=== PATIENT | female | born 1990 | race Caucasian/White ===

== ENCOUNTER 2017-07-14 20:22 | Emergency (ER) | payer OTHER ==
[~2017-07-14] VITALS: Ht 172.7 cm; Wt 104.3 kg
[~2017-07-14 20:22] MED LIST: ACET325; ACETAMINOPHEN; ALBU90OI INH; ALBU90OI61 INH; AMOX500 PO; ARIP15; ARIP15 PO; ARIP20 PO; ASPI81CH PO; ATOM25; AZIT250 PO; Amoxicillin500 MG PO; Ativan1 MG SL; BACITO TP; BECL80OI INH; BENZ100A PO; BIRTH CONTROL; BIRTH CONTROL PILLS; BUPR150ER; BUPR150ER PO; BUPR150T2; BUPR150T2 PO; BUSP5 PO; CEPH500 PO; CIPR500 PO; CLIN300 PO; CLON.5 PO; CODACE30; CODACE30 PO; CODGUAEL PO; COGENTIN; CYCL10 PO; Cipro500 MG PO; Cleocin HCl300 MG PO; DIAZ2 PO; DIPH50; DIPH50 PO; DOXY100 PO; Desyrel50 MG PO; ERGO400 PO; ESCI20; Estradiol0.5 MG PO; FAMO20 PO; FISH1000 PO; FLUC150A PO; FLUO10 PO; FOLI1; Flonase 0.05% N16 GM; GABA100 PO; GUAIFENESIN-PS1 EACH PO; HYDACE5; HYDACE5 PO; HYDACE5325 PO; HYDHCL25 PO; HYDR-86 PO; HYOS.125L SL; IBUP600 PO; IBUP800 PO; IBUPROFEN; KETO10 PO; LAMO100 PO; LAMO25 PO; LEVSOD150 PO; LEVSOD75 PO; LORA.5; LORA.5 PO; LORA2 PO; Lasix40 MG PO; MEDR150I; MELO7.5 PO; METF500 PO; METR500 PO; MONT10T; MONT10T PO; MULTI VIT; MULVITMINE; NAPR250 PO; NAPR500 PO; NITR100CA PO; NUVA RING; NYSTRI30T TOP; Naprosyn500 MG PO; OLAN5 PO; OMEP10ER; OMEP40CA12 PO; ONDA4ODT MM; OXECTA7.5 MG PO; OXYACE5T PO; OXYACE7.5T PO; OXYC5 PO; Omeprazole20 M1; PARO10 PO; PENVK500 PO; PHENA200 PO; POTCHL10ER PO; PRAZ1 PO; PRED10 PO; PRENZ PO; PROM25 PO; Percocet 5-3251 EACH PO; Peridex480 ML SS; Polytrim Eye Dr10 ML RIGHTEYE; Prednisone50 MG PO; Pseudoephedrine30 MG PO; Pyridium200 MG PO; QUET25; RANI150; RANI150 PO; RISP1; RXHYDACE PO; RXPROM25 PO; RXTOBROPSO OU; SULTRIDS PO; Symbyax 3-25 M1 EACH PO; TOPI100 PO; TRAACE PO; TRAM50 PO; Zofran Odt4 MG SL; [UNRECOGNIZED DRUG - OTHER] PO
[2017-07-14 23:48] LABS: BASOPHILS ABSOLUTE AUTO 0.04 K/mm3 (0.00-0.23); BASOPHILS PERCENT AUTO 0 % (0-2); EOSINOPHILS ABSOLUTE AUTO 0.16 K/mm3 (0.00-0.68); EOSINOPHILS PERCENT AUTO 2 % (0-6); Hematocrit 39.5 % (33.0-51.0); IMMATURE GRAN ABSOLUTE AUTO 0.04 K/mm3 (0.00-0.10); IMMATURE GRAN PERCENT AUTO 0 % (0-1); LYMPHOCYTES ABSOLUTE AUTO 2.72 K/mm3 (0.84-5.20); LYMPHOCYTES PERCENT AUTO 30 % (21-46); MONOCYTES ABSOLUTE AUTO 0.41 K/mm3 (0.16-1.47); MONOCYTES PERCENT AUTO 5 % (4-13); Mean Corpuscular HGB 28.1 pg (26.0-34.0); Mean Corpuscular HGB Conc 32.9 g/dL (31.5-36.5); Mean Corpuscular Volume 85 fL (80-100); NEUTROPHILS ABSOLUTE AUTO 5.79 K/mm3 (1.96-9.15); NEUTROPHILS PERCENT AUTO 63 % (41-73); Platelet Count 297 K/mm3 (150-400); RDW Coefficient Variation 11.8 % (11.7-14.2); RDW Standard Deviation 36.7 fL (35.1-46.3); Red Blood Cell Count 4.63 M/mm3 (3.80-5.20); White Blood Cell Count 9.16 K/mm3 (4.00-11.30)
[2017-07-15 00:06] LABS: Alanine Aminotransfer (ALT/SGP 22 U/L (12-78); Albumin, Blood 3.9 g/dL (3.4-5.0); Albumin/Globulin Ratio 0.9 (0.8-1.8); Alk Phos 100 U/L (50-136); Anion Gap 8 mmol/L (6-16); Aspartate Aminotrans (AST/SGOT 16 U/L (12-37); Bilirubin, Total 0.2 mg/dL (0.1-1.0); Blood Urea Nitrogen 12 mg/dL (8-24); Bun/Creatinine Ratio 16.3 (12.0-20.0); CO2, Blood 28 mmol/L (21-32); Calcium, Blood 9.6 mg/dL (8.5-10.1); Chloride, Blood 104 mmol/L (98-108); Creatinine, Blood 0.74 mg/dL (0.40-1.00); Globulin, Blood 4.2 g/dL (2.2-4.0); Glomerular Filtration Rate >60 (60-); Glucose, Blood 93 mg/dL (70-99); Potassium, Blood 3.8 mmol/L (3.5-5.5); Sodium, Blood 140 mmol/L (136-145); Total Protein, Blood 8.1 g/dL (6.4-8.2)
== END 2017-07-15 03:11 | disposition left against medical advice (07) ==
LOC: ER 20:22
PROVIDERS: Emergency Medicine
DX: R10.13 Epigastric pain (principal); R11.2 Nausea with vomiting, unspecified; J45.909 Unspecified asthma, uncomplicated; E03.9 Hypothyroidism, unspecified; F31.9 Bipolar disorder, unspecified; F41.9 Anxiety disorder, unspecified; F17.210 Nicotine dependence, cigarettes, uncomplicated; F17.290 Nicotine dependence, other tobacco product, uncomplicated; Z91.040 Latex allergy status; Z88.8 Allergy status to other drugs, medicaments and biological substances; Z91.018 Allergy to other foods; Z88.5 Allergy status to narcotic agent; Z79.899 Other long term (current) drug therapy
CPT/HCPCS: 36415; 80053; 83690; 85025; 96360; 99283; J2405; J7030

== ENCOUNTER 2018-07-24 06:08 | Day surgery (SDC) | payer OTHER ==
[~2018-07-24] VITALS: Ht 172.7 cm; Wt 118.1 kg
[~2018-07-24 06:08] MED LIST changes: +ACET325 PO; +DIAZ5 PO; +ESTR2 PO; +Inderal 20 mg T20 MG PO; +Lamictal25 MG PO; +Lialda1.2 GM PO; +MULTI VITAMIN1 EACH PO; +OMEPRAZOLE MAGN20 MG PO; +PROZAC20 MG PO; +QVAR REDIHALE10.6 G1 INH; +REXULTI1 MG PO; +Robaxin500 MG PO; +Synthroid175 MCG PO
[2018-07-24] MEDS ORDERED: DIAZ2 PO (06:53)
[2018-07-24] MEDS ORDERED: OLAN10 PO (06:55)
--- NOTE | 2018-07-24 07:03 | NUR ---
07/24/18 0703 Maribel Del Castillo V PT RESTING IN BED, SIDE RAILS IN PLACE, CALL LIGHT WITHIN REACH, VSS. PT TEACHING COMPLETED. PT REPORTS PAIN IN L KNEE BUT NO FUTHER DISCOMFORT OR QUESTIONS AT THIS TIME.
== END 2018-07-24 09:45 | disposition home or self-care (01) ==
LOC: ORSCSDS 06:08
PROVIDERS: Orthopaedic Surgery
PROC: 0SBD4ZZ Excision of Left Knee Joint, Percutaneous Endoscopic Approach (ICD-10-PCS; principal; 2018-07-24 07:30)
PROC: 0MNP4ZZ Release Left Knee Bursa and Ligament, Percutaneous Endoscopic Approach (ICD-10-PCS; principal; 2018-07-24 07:30)
DX: M22.42 Chondromalacia patellae, left knee (principal); S83.002A Unspecified subluxation of left patella, initial encounter; J45.909 Unspecified asthma, uncomplicated; F17.210 Nicotine dependence, cigarettes, uncomplicated; E03.9 Hypothyroidism, unspecified; M79.7 Fibromyalgia; K21.9 Gastro-esophageal reflux disease without esophagitis; E66.01 Morbid (severe) obesity due to excess calories; Z68.39 Body mass index [BMI] 39.0-39.9, adult; Z79.899 Other long term (current) drug therapy
CPT/HCPCS: J0171; J0690; J1100; J1885; J2250; J2405; J2704; J3010; J7120

== ENCOUNTER 2018-10-22 08:19 | Day surgery (SDC) | payer OTHER ==
[~2018-10-22] VITALS: Ht 172.7 cm; Wt 125.8 kg
[~2018-10-22 08:19] MED LIST changes: +OLAN10 PO
[2018-10-22] MEDS ORDERED: TOPI100 (08:50)
== END 2018-10-22 10:20 | disposition home or self-care (01) ==
LOC: ORSCSDS 08:19
PROVIDERS: Internal Medicine Gastroenterology
PROC: 0DB98ZX Excision of Duodenum, Via Natural or Artificial Opening Endoscopic, Diagnostic (ICD-10-PCS; principal; 2018-10-22 10:00)
PROC: 0DB68ZX Excision of Stomach, Via Natural or Artificial Opening Endoscopic, Diagnostic (ICD-10-PCS; principal; 2018-10-22 10:00)
DX: R10.9 Unspecified abdominal pain (principal); Z87.19 Personal history of other diseases of the digestive system; K29.80 Duodenitis without bleeding; R19.7 Diarrhea, unspecified; K21.9 Gastro-esophageal reflux disease without esophagitis; J45.909 Unspecified asthma, uncomplicated; F41.9 Anxiety disorder, unspecified; E66.9 Obesity, unspecified; Z68.39 Body mass index [BMI] 39.0-39.9, adult; K27.9 Peptic ulcer, site unspecified, unspecified as acute or chronic, without hemorrhage or perforation; Z87.891 Personal history of nicotine dependence; Z79.899 Other long term (current) drug therapy
CPT/HCPCS: 88305; 88342; J2704; J7120

== ENCOUNTER 2020-04-08 18:13 | Emergency (ER) | payer OTHER ==
[~2020-04-08] VITALS: Ht 170.2 cm; Wt 117.9 kg
[~2020-04-08 18:13] MED LIST changes: +TOPI100
[2020-04-08] MEDS ORDERED: Voltaren100 GM TOP (19:50)
[2020-04-22] MEDS ORDERED: Prevacid Soluta30 MG (09:18)
[2020-04-22] MEDS ORDERED: LATUDA80 M1 (09:18)
== END 2020-04-08 20:03 | disposition home or self-care (01) ==
LOC: ER 18:13
DX: S13.4XXA Sprain of ligaments of cervical spine, initial encounter (principal); S20.211A Contusion of right front wall of thorax, initial encounter; S83.91XA Sprain of unspecified site of right knee, initial encounter; E03.9 Hypothyroidism, unspecified; Z91.040 Latex allergy status; Z88.5 Allergy status to narcotic agent; Z79.899 Other long term (current) drug therapy; Z79.3 Long term (current) use of hormonal contraceptives; Z87.891 Personal history of nicotine dependence; W01.0XXA Fall on same level from slipping, tripping and stumbling without subsequent striking against object, initial encounter; Y92.512 Supermarket, store or market as the place of occurrence of the external cause
CPT/HCPCS: 96372; 99283-25; J1885

== ENCOUNTER 2020-04-29 11:55 | Day surgery (SDC) | payer OTHER ==
[~2020-04-29] VITALS: Ht 170.2 cm; Wt 115.9 kg
[~2020-04-29 11:55] MED LIST changes: +LATUDA80 M1; +Prevacid Soluta30 MG; +Voltaren100 GM TOP
== END 2020-04-29 14:17 | disposition home or self-care (01) ==
LOC: ORSCSDS 11:55
PROVIDERS: Internal Medicine Gastroenterology
PROC: 0DBG8ZX Excision of Left Large Intestine, Via Natural or Artificial Opening Endoscopic, Diagnostic (ICD-10-PCS; principal; 2020-04-29 13:15)
PROC: 0DBF8ZX Excision of Right Large Intestine, Via Natural or Artificial Opening Endoscopic, Diagnostic (ICD-10-PCS; principal; 2020-04-29 13:15)
PROC: 0DB68ZX Excision of Stomach, Via Natural or Artificial Opening Endoscopic, Diagnostic (ICD-10-PCS; principal; 2020-04-29 13:15)
PROC: 0DBN8ZX Excision of Sigmoid Colon, Via Natural or Artificial Opening Endoscopic, Diagnostic (ICD-10-PCS; principal; 2020-04-29 13:15)
PROC: 0DBP8ZX Excision of Rectum, Via Natural or Artificial Opening Endoscopic, Diagnostic (ICD-10-PCS; principal; 2020-04-29 13:15)
PROC: 0DB98ZX Excision of Duodenum, Via Natural or Artificial Opening Endoscopic, Diagnostic (ICD-10-PCS; principal; 2020-04-29 13:15)
DX: K52.3 Indeterminate colitis (principal); D12.5 Benign neoplasm of sigmoid colon; K64.8 Other hemorrhoids; K21.00 Gastro-esophageal reflux disease with esophagitis, without bleeding; K44.9 Diaphragmatic hernia without obstruction or gangrene; R11.2 Nausea with vomiting, unspecified; Z87.11 Personal history of peptic ulcer disease; E03.9 Hypothyroidism, unspecified; Z79.899 Other long term (current) drug therapy; Z87.891 Personal history of nicotine dependence
CPT/HCPCS: 88305; 88342; J2704; J7120

== ENCOUNTER 2021-06-06 19:46 | Emergency (ER) | payer OTHER ==
[~2021-06-06] VITALS: Ht 170.2 cm; Wt 125.2 kg
[2021-06-06] MEDS ORDERED: HYDCHL25 PO (20:52)
[2021-06-06] MEDS ORDERED: DIBU30TO TOP (22:23)
== END 2021-06-06 22:42 | disposition home or self-care (01) ==
LOC: ER 19:46
DX: K60.2 Anal fissure, unspecified (principal); M06.9 Rheumatoid arthritis, unspecified; J45.909 Unspecified asthma, uncomplicated; Z79.899 Other long term (current) drug therapy; Z91.040 Latex allergy status; Z88.8 Allergy status to other drugs, medicaments and biological substances
CPT/HCPCS: 99282

== ENCOUNTER 2021-11-12 17:13 | Emergency (ER) | payer OTHER ==
[~2021-11-12] VITALS: Ht 170.2 cm; Wt 120.2 kg
[~2021-11-12 17:13] MED LIST changes: +DIBU30TO TOP; +DICY20 PO; +HYDCHL25 PO; +OMEP20ER PO; +ONDA8 PO; +PROG100 PO; +QVAR REDIHALE10.6 G2 IH; +TRAZ50 PO
[2021-11-12 18:35] LABS: BASOPHILS ABSOLUTE AUTO 0.03 K/mm3 (0.00-0.23); BASOPHILS PERCENT AUTO 0 % (0-2); EOSINOPHILS ABSOLUTE AUTO 0.09 K/mm3 (0.00-0.68); EOSINOPHILS PERCENT AUTO 1 % (0-6); Hemoglobin 11.5 g/dL (11.5-16.0); IMMATURE GRAN ABSOLUTE AUTO 0.01 K/mm3 (0.00-0.10); IMMATURE GRAN PERCENT AUTO 0 % (0-1); LYMPHOCYTES ABSOLUTE AUTO 2.16 K/mm3 (0.84-5.20); LYMPHOCYTES PERCENT AUTO 30 % (21-46); MONOCYTES ABSOLUTE AUTO 0.44 K/mm3 (0.16-1.47); MONOCYTES PERCENT AUTO 6 % (4-13); Mean Corpuscular HGB Conc 31.1 g/dL (31.5-36.5); Mean Corpuscular Volume 80 fL (80-100); Mean Platelet Volume 11.6 fL (9.1-12.4); NEUTROPHILS ABSOLUTE AUTO 4.39 K/mm3 (1.96-9.15); NEUTROPHILS PERCENT AUTO 62 % (41-73); Platelet Count 309 K/mm3 (150-400); RDW Coefficient Variation 15.8 % (11.7-14.2); RDW Standard Deviation 46.3 fL (35.1-46.3); White Blood Cell Count 7.12 K/mm3 (4.00-11.30)
[2021-11-12 18:57] LABS: Albumin, Blood 3.8 g/dL (3.4-5.0); Bilirubin, Total 0.2 mg/dL (0.1-1.0); Bun/Creatinine Ratio 8.7 (12.0-20.0); Calcium, Blood 9.7 mg/dL (8.5-10.1); Creatinine, Blood 0.92 mg/dL (0.40-1.00); Globulin, Blood 3.7 g/dL (2.2-4.0); Potassium, Blood 3.4 mmol/L (3.5-5.5); Total Protein, Blood 7.5 g/dL (6.4-8.2)
[2021-11-12] MEDS ORDERED: Prednisone20 MG PO (20:08)
[2021-11-12] MEDS ORDERED: ONDA4ODT MM (20:08)
[2021-11-12] MEDS ORDERED: DICY20 PO (20:08)
== END 2021-11-12 20:34 | disposition home or self-care (01) ==
LOC: ER 17:13
PROVIDERS: Physician Assistant
DX: R10.30 Lower abdominal pain, unspecified (principal); R11.0 Nausea; J45.909 Unspecified asthma, uncomplicated; Z87.891 Personal history of nicotine dependence; Z79.899 Other long term (current) drug therapy; Z88.1 Allergy status to other antibiotic agents; Z91.040 Latex allergy status; Z88.5 Allergy status to narcotic agent; Z88.8 Allergy status to other drugs, medicaments and biological substances; Z91.018 Allergy to other foods
CPT/HCPCS: 36415; 80053; 83690; 85025; J1885; J2270; J2405; J2550; J7030; J7512

== ENCOUNTER → 2021-11-13 | Outpatient (CLI) | payer OTHER ==
[~2021-11-13] MED LIST changes: +Prednisone20 MG PO
[2021-11-14 13:44] LABS: Adenovirus F 40/41 Not Detected (NOT DETECT); Astrovirus Not Detected (NOT DETECT); Campylobacter Sp Not Detected (NOT DETECT); Cryptosporidium Not Detected (NOT DETECT); Cyclospora Cayetanensis Not Detected (NOT DETECT); E. Coli O157 Not Detected (NOT DETECT); Entamoeba Histolytica Not Detected (NOT DETECT); Enteroaggregative E. coli-EAEC Not Detected (NOT DETECT); Enteropathogenic E. coli-EPEC Not Detected (NOT DETECT); Enterotoxigenic E. coli-ETEC Not Detected (NOT DETECT); Giardia Lamblia Not Detected (NOT DETECT); Norovirus GI/GII Not Detected (NOT DETECT); Plesiomonas Shigelloides Not Detected (NOT DETECT); Rotavirus A Not Detected (NOT DETECT); Salmonella Sp Not Detected (NOT DETECT); Sapovirus Not Detected (NOT DETECT); Shiga Toxin-prod E. coli-STEC Not Detected (NOT DETECT); Shigella/Enteroin E. coli-EIEC Not Detected (NOT DETECT); Vibrio Cholerae Not Detected (NOT DETECT); Vibrio Sp Not Detected (NOT DETECT); Yersinia Enterocolitica Not Detected (NOT DETECT)
== END | disposition home or self-care (01) ==
LOC: LAB SHORT 18:25
PROVIDERS: Physician Assistant Medical
DX: R19.7 Diarrhea, unspecified (principal)
CPT/HCPCS: 87507

== ENCOUNTER 2021-11-30 23:15 | Emergency (ER) | payer OTHER ==
[~2021-11-30] VITALS: Ht 170.2 cm; Wt 117.9 kg
[~2021-11-30 23:15] MED LIST changes: +AMIT25 PO; +PANT40 PO; -TOPI100
[2021-12-01 01:26] LABS: Albumin, Blood 3.2 g/dL (3.4-5.0); Albumin/Globulin Ratio 0.9 (0.8-1.8); Bilirubin, Total 0.2 mg/dL (0.1-1.0); Bun/Creatinine Ratio 13.8 (12.0-20.0); Calcium, Blood 8.7 mg/dL (8.5-10.1); Creatinine, Blood 0.94 mg/dL (0.40-1.00); Globulin, Blood 3.4 g/dL (2.2-4.0); Potassium, Blood 3.2 mmol/L (3.5-5.5); Total Protein, Blood 6.6 g/dL (6.4-8.2)
[2021-12-01 01:53] LABS: BASOPHILS ABSOLUTE AUTO 0.05 K/mm3 (0.00-0.23); BASOPHILS PERCENT AUTO 1 % (0-2); EOSINOPHILS ABSOLUTE AUTO 0.13 K/mm3 (0.00-0.68); EOSINOPHILS PERCENT AUTO 3 % (0-6); Hematocrit 32.2 % (33.0-51.0); Hemoglobin 10.1 g/dL (11.5-16.0); IMMATURE GRAN ABSOLUTE AUTO 0.02 K/mm3 (0.00-0.10); IMMATURE GRAN PERCENT AUTO 0 % (0-1); LYMPHOCYTES ABSOLUTE AUTO 2.04 K/mm3 (0.84-5.20); LYMPHOCYTES PERCENT AUTO 42 % (21-46); MONOCYTES ABSOLUTE AUTO 0.31 K/mm3 (0.16-1.47); MONOCYTES PERCENT AUTO 6 % (4-13); Mean Corpuscular HGB 25.1 pg (26.0-34.0); Mean Corpuscular HGB Conc 31.4 g/dL (31.5-36.5); Mean Corpuscular Volume 80 fL (80-100); Mean Platelet Volume 11.8 fL (9.1-12.4); NEUTROPHILS ABSOLUTE AUTO 2.26 K/mm3 (1.96-9.15); NEUTROPHILS PERCENT AUTO 47 % (41-73); Platelet Count 235 K/mm3 (150-400); RDW Coefficient Variation 15.8 % (11.7-14.2); RDW Standard Deviation 45.4 fL (35.1-46.3); Red Blood Cell Count 4.03 M/mm3 (3.80-5.20); White Blood Cell Count 4.81 K/mm3 (4.00-11.30)
== END 2021-12-01 02:30 | disposition home or self-care (01) ==
LOC: ER 23:15
PROVIDERS: Emergency Medicine; Physician Assistant
DX: R10.9 Unspecified abdominal pain (principal); R11.2 Nausea with vomiting, unspecified; R19.7 Diarrhea, unspecified; E87.6 Hypokalemia; K44.9 Diaphragmatic hernia without obstruction or gangrene; Z79.899 Other long term (current) drug therapy
CPT/HCPCS: 36415; 80053; 85025; 86850; 86900; 86901; J0500; J1790; J7030

== ENCOUNTER 2021-12-03 21:44 | Emergency (ER) | payer OTHER ==
[~2021-12-03] VITALS: Ht 170.2 cm; Wt 115.7 kg
[2021-12-03 23:23] LABS: BASOPHILS ABSOLUTE AUTO 0.05 K/mm3 (0.00-0.23); BASOPHILS PERCENT AUTO 1 % (0-2); EOSINOPHILS ABSOLUTE AUTO 0.16 K/mm3 (0.00-0.68); EOSINOPHILS PERCENT AUTO 2 % (0-6); Hematocrit 38.9 % (33.0-51.0); IMMATURE GRAN ABSOLUTE AUTO 0.02 K/mm3 (0.00-0.10); IMMATURE GRAN PERCENT AUTO 0 % (0-1); LYMPHOCYTES ABSOLUTE AUTO 2.56 K/mm3 (0.84-5.20); LYMPHOCYTES PERCENT AUTO 35 % (21-46); MONOCYTES ABSOLUTE AUTO 0.44 K/mm3 (0.16-1.47); MONOCYTES PERCENT AUTO 6 % (4-13); Mean Corpuscular HGB 25.3 pg (26.0-34.0); Mean Corpuscular HGB Conc 30.8 g/dL (31.5-36.5); Mean Corpuscular Volume 82 fL (80-100); Mean Platelet Volume 11.1 fL (9.1-12.4); NEUTROPHILS ABSOLUTE AUTO 4.19 K/mm3 (1.96-9.15); NEUTROPHILS PERCENT AUTO 56 % (41-73); Platelet Count 276 K/mm3 (150-400); RDW Coefficient Variation 15.3 % (11.7-14.2); RDW Standard Deviation 45.4 fL (35.1-46.3); Red Blood Cell Count 4.75 M/mm3 (3.80-5.20); White Blood Cell Count 7.42 K/mm3 (4.00-11.30)
[2021-12-03 23:46] LABS: Albumin, Blood 3.7 g/dL (3.4-5.0); Bilirubin, Total 0.2 mg/dL (0.1-1.0); Bun/Creatinine Ratio 13.7 (12.0-20.0); Calcium, Blood 9.4 mg/dL (8.5-10.1); Creatinine, Blood 0.95 mg/dL (0.40-1.00); Globulin, Blood 3.6 g/dL (2.2-4.0); Potassium, Blood 3.5 mmol/L (3.5-5.5); Total Protein, Blood 7.3 g/dL (6.4-8.2)
[2021-12-04] MEDS ORDERED: PROM25 PO (00:45)
[2021-12-04] MEDS ORDERED: DICY20 PO (00:45)
== END 2021-12-04 00:58 | disposition home or self-care (01) ==
LOC: ER 21:44
PROVIDERS: Student in an Organized Health Care Education/Training Program
DX: R10.9 Unspecified abdominal pain (principal); M06.9 Rheumatoid arthritis, unspecified; J45.909 Unspecified asthma, uncomplicated; R11.2 Nausea with vomiting, unspecified; Z88.1 Allergy status to other antibiotic agents; Z88.8 Allergy status to other drugs, medicaments and biological substances; Z88.5 Allergy status to narcotic agent; Z91.040 Latex allergy status; Z79.899 Other long term (current) drug therapy
CPT/HCPCS: 36415; 80053; 83690; 84703; 85025; 96374; 96375; 99284-25; A9270; J2405; J2550; J7030

== ENCOUNTER 2022-01-27 23:21 | Emergency (ER) | payer OTHER ==
[2022-01-28] MEDS ORDERED: ONDA4ODT MM ×2 (00:53→05:16)
[2022-01-28] MEDS ORDERED: OMEP20ER PO (00:53)
[2022-01-28] MEDS ORDERED: PROM12.5S PR (05:16)
== END 2022-01-28 05:33 | disposition home or self-care (01) ==
DX: R10.9 Unspecified abdominal pain (principal); R19.7 Diarrhea, unspecified; R11.2 Nausea with vomiting, unspecified; J45.909 Unspecified asthma, uncomplicated; E03.9 Hypothyroidism, unspecified; Z88.6 Allergy status to analgesic agent; Z88.1 Allergy status to other antibiotic agents; Z91.040 Latex allergy status; Z88.8 Allergy status to other drugs, medicaments and biological substances; Z91.018 Allergy to other foods; Z87.891 Personal history of nicotine dependence

== ENCOUNTER → 2022-04-27 | Outpatient (CLI) | payer OTHER ==
[~2022-04-27] MED LIST changes: +PROM12.5S PR
[2022-04-27 17:22] LABS: Source, Urine Clean Catch
[2022-04-27 18:52] LABS: Appearance, Urine Clear (Clear); Bilirubin, Urine Neg (Neg); Blood, Urine Neg (Neg); Color, Urine Yellow (P-Yellow); Glucose Qualitative, Urine Neg (Neg); Ketones, Urine Neg (Neg); Leukocyte Esterase, Urine Neg (Neg); Nitrite, Urine Neg (Neg); Protein, Urine Neg (Neg); Specific Gravity, Urine 1.015 (1.003-1.022); Urobilinogen, Urine NORM (Normal)
== END | disposition home or self-care (01) ==
LOC: LAB SHORT 17:21
PROVIDERS: Obstetrics & Gynecology
DX: R39.15 Urgency of urination (principal)
CPT/HCPCS: 81003

== ENCOUNTER → 2022-06-05 | Outpatient (CLI) | payer OTHER ==
[2022-06-06 10:45] LABS: Candida species (DNA Probe) Negative (NEGATIVE); G. vaginalis (DNA Probe) Positive (NEGATIVE); T. vaginalis (DNA Probe) Negative (NEGATIVE)
== END | disposition home or self-care (01) ==
LOC: LAB 14:59 → LAB SHORT 14:59
PROVIDERS: Family Medicine
DX: N89.8 Other specified noninflammatory disorders of vagina (principal)
CPT/HCPCS: 87480; 87510; 87660

== ENCOUNTER 2022-09-16 11:57 | Emergency (ER) | payer OTHER ==
[~2022-09-16] VITALS: Ht 167.6 cm; Wt 113.4 kg
[2022-09-16 12:26] LABS: BASOPHILS ABSOLUTE AUTO 0.05 K/mm3 (0.00-0.23); BASOPHILS PERCENT AUTO 1 % (0-2); EOSINOPHILS ABSOLUTE AUTO 0.11 K/mm3 (0.00-0.68); EOSINOPHILS PERCENT AUTO 2 % (0-6); Hematocrit 40.7 % (33.0-51.0); Hemoglobin 12.6 g/dL (11.5-16.0); IMMATURE GRAN ABSOLUTE AUTO 0.02 K/mm3 (0.00-0.10); IMMATURE GRAN PERCENT AUTO 0 % (0-1); LYMPHOCYTES ABSOLUTE AUTO 2.34 K/mm3 (0.84-5.20); LYMPHOCYTES PERCENT AUTO 32 % (21-46); MONOCYTES ABSOLUTE AUTO 0.44 K/mm3 (0.16-1.47); MONOCYTES PERCENT AUTO 6 % (4-13); Mean Corpuscular HGB 24.5 pg (26.0-34.0); Mean Corpuscular Volume 79 fL (80-100); Mean Platelet Volume 10.6 fL (9.1-12.4); NEUTROPHILS ABSOLUTE AUTO 4.29 K/mm3 (1.96-9.15); NEUTROPHILS PERCENT AUTO 59 % (41-73); Platelet Count 286 K/mm3 (150-400); RDW Coefficient Variation 18.7 % (11.7-14.2); RDW Standard Deviation 53.4 fL (35.1-46.3); Red Blood Cell Count 5.14 M/mm3 (3.80-5.20); White Blood Cell Count 7.25 K/mm3 (4.00-11.30)
[2022-09-16 13:09] LABS: Alanine Aminotransfer (ALT/SGP 21 U/L (12-78); Albumin, Blood 3.6 g/dL (3.4-5.0); Albumin/Globulin Ratio 0.9 (0.8-1.8); Alk Phos 77 U/L (50-136); Anion Gap 5 mmol/L (6-16); Aspartate Aminotrans (AST/SGOT 22 U/L (12-37); Blood Urea Nitrogen 12 mg/dL (8-24); Bun/Creatinine Ratio 13.1 (12.0-20.0); CO2, Blood 22 mmol/L (21-32); Chloride, Blood 115 mmol/L (98-108); Creatinine, Blood 0.92 mg/dL (0.40-1.00); Globulin, Blood 3.9 g/dL (2.2-4.0); Glomerular Filtration Rate 84 (60-); Glucose, Blood 96 mg/dL (70-99); Potassium, Blood 4.2 mmol/L (3.5-5.5); Sodium, Blood 142 mmol/L (136-145); Total Protein, Blood 7.5 g/dL (6.4-8.2)
[2022-09-16 13:11] LABS: Bilirubin, Total <0.1 mg/dL (0.1-1.0)
[2022-09-16] MEDS ORDERED: DICY20 PO (14:04)
[2022-09-16] MEDS ORDERED: CARAFATE1 GM/10 M1 PO (14:04)
[2022-09-16 14:16] VITALS: BP 128/83
== END 2022-09-16 14:26 | disposition home or self-care (01) ==
LOC: ER 11:57
PROVIDERS: Emergency Medicine
DX: R10.12 Left upper quadrant pain (principal); J45.909 Unspecified asthma, uncomplicated; E05.90 Thyrotoxicosis, unspecified without thyrotoxic crisis or storm; Z86.010 Personal history of colon polyps; Z79.899 Other long term (current) drug therapy; Z87.891 Personal history of nicotine dependence
CPT/HCPCS: 74022; 80053; 83690; 85025; 96372-59; 96374; 96375; 96376; 99284-25; A9270; J0500; J1170; J2405; J7030

== ENCOUNTER 2022-11-08 16:36 | Emergency (ER) | payer OTHER ==
[~2022-11-08] VITALS: Ht 167.6 cm; Wt 113.8 kg
[~2022-11-08 16:36] MED LIST changes: +CARAFATE1 GM/10 M1 PO
[2022-11-08 16:58] VITALS: BP 127/93
[2022-11-08 17:25] LABS: Source, Urine Clean Catch
[2022-11-08 17:28] LABS: Appearance, Urine Hazy (Clear); Bilirubin, Urine Neg (Neg); Blood, Urine 5+ (Neg); Glucose Qualitative, Urine Neg (Neg); Ketones, Urine Neg (Neg); Leukocyte Esterase, Urine 2+ (Neg); Nitrite, Urine Neg (Neg); Protein, Urine 2+ (Neg); Specific Gravity, Urine 1.015 (1.003-1.022); Urobilinogen, Urine NORM (Normal)
[2022-11-08 17:38] LABS: Color, Urine Pale Yellow (P-Yellow)
[2022-11-08 17:40] LABS: Red Blood Cells, Urine 50-100 /hpf (0-2); Squamous Epithelial Cells Few /hpf (Few); White Blood Cells, Urine 25-50 /hpf (0-5)
[2022-11-08 17:41] LABS: Bacteria Many /hpf; Mucus Light (0-Heavy)
[2022-11-08 17:44] LABS: BASOPHILS ABSOLUTE AUTO 0.04 K/mm3 (0.00-0.23); BASOPHILS PERCENT AUTO 0 % (0-2); EOSINOPHILS ABSOLUTE AUTO 0.05 K/mm3 (0.00-0.68); EOSINOPHILS PERCENT AUTO 0 % (0-6); Hematocrit 41.1 % (33.0-51.0); Hemoglobin 13.4 g/dL (11.5-16.0); IMMATURE GRAN ABSOLUTE AUTO 0.05 K/mm3 (0.00-0.10); IMMATURE GRAN PERCENT AUTO 0 % (0-1); LYMPHOCYTES ABSOLUTE AUTO 2.75 K/mm3 (0.84-5.20); LYMPHOCYTES PERCENT AUTO 21 % (21-46); MONOCYTES ABSOLUTE AUTO 0.83 K/mm3 (0.16-1.47); MONOCYTES PERCENT AUTO 6 % (4-13); Mean Corpuscular HGB 25.7 pg (26.0-34.0); Mean Corpuscular HGB Conc 32.6 g/dL (31.5-36.5); Mean Corpuscular Volume 79 fL (80-100); NEUTROPHILS ABSOLUTE AUTO 9.49 K/mm3 (1.96-9.15); NEUTROPHILS PERCENT AUTO 72 % (41-73); Platelet Count 294 K/mm3 (150-400); RDW Coefficient Variation 14.3 % (11.7-14.2); RDW Standard Deviation 40.1 fL (35.1-46.3); Red Blood Cell Count 5.21 M/mm3 (3.80-5.20); White Blood Cell Count 13.21 K/mm3 (4.00-11.30)
[2022-11-08 18:01] LABS: Albumin, Blood 3.7 g/dL (3.4-5.0); Albumin/Globulin Ratio 0.9 (0.8-1.8); Bilirubin, Total 0.2 mg/dL (0.1-1.0); Bun/Creatinine Ratio 18.9 (12.0-20.0); Calcium, Blood 9.6 mg/dL (8.5-10.1); Creatinine, Blood 0.9 mg/dL (0.40-1.00); Globulin, Blood 3.9 g/dL (2.2-4.0); Potassium, Blood 3.8 mmol/L (3.5-5.5); Total Protein, Blood 7.6 g/dL (6.4-8.2)
[2022-11-08] MEDS ORDERED: Pyridium100 MG PO (20:36)
[2022-11-08] MEDS ORDERED: CEPH500 PO (20:36)
== END 2022-11-08 20:49 | disposition home or self-care (01) ==
LOC: ER 16:36
PROVIDERS: Physician Assistant
DX: N39.0 Urinary tract infection, site not specified (principal); Z88.1 Allergy status to other antibiotic agents; Z88.8 Allergy status to other drugs, medicaments and biological substances; Z91.040 Latex allergy status; Z88.5 Allergy status to narcotic agent; Z91.018 Allergy to other foods; Z79.899 Other long term (current) drug therapy; E05.41 Thyrotoxicosis factitia with thyrotoxic crisis or storm; J45.909 Unspecified asthma, uncomplicated; Z87.891 Personal history of nicotine dependence; M06.9 Rheumatoid arthritis, unspecified
CPT/HCPCS: 80053; 81001; 85025; 87077; 87086; 87186; 96374; 96375; 99284-25; A9270; J1885; J2405

== ENCOUNTER 2023-03-31 22:35 | Emergency (ER) | payer OTHER ==
[~2023-03-31] VITALS: Ht 167.6 cm; Wt 121.6 kg
[~2023-03-31 22:35] MED LIST changes: +Pyridium100 MG PO
[2023-03-31 23:17] LABS: BASOPHILS ABSOLUTE AUTO 0.04 K/mm3 (0.00-0.23); BASOPHILS PERCENT AUTO 1 % (0-2); EOSINOPHILS PERCENT AUTO 2 % (0-6); Hematocrit 36.5 % (33.0-51.0); Hemoglobin 11.9 g/dL (11.5-16.0); IMMATURE GRAN ABSOLUTE AUTO 0.02 K/mm3 (0.00-0.10); IMMATURE GRAN PERCENT AUTO 0 % (0-1); LYMPHOCYTES ABSOLUTE AUTO 2.89 K/mm3 (0.84-5.20); LYMPHOCYTES PERCENT AUTO 42 % (21-46); MONOCYTES ABSOLUTE AUTO 0.44 K/mm3 (0.16-1.47); MONOCYTES PERCENT AUTO 6 % (4-13); Mean Corpuscular HGB 27.1 pg (26.0-34.0); Mean Corpuscular HGB Conc 32.6 g/dL (31.5-36.5); Mean Corpuscular Volume 83 fL (80-100); Mean Platelet Volume 10.4 fL (9.1-12.4); NEUTROPHILS ABSOLUTE AUTO 3.38 K/mm3 (1.96-9.15); NEUTROPHILS PERCENT AUTO 49 % (41-73); Platelet Count 254 K/mm3 (150-400); RDW Standard Deviation 42.4 fL (35.1-46.3); Red Blood Cell Count 4.39 M/mm3 (3.80-5.20); White Blood Cell Count 6.87 K/mm3 (4.00-11.30)
[2023-03-31] MEDS ORDERED: LEVSOD100 PO (23:25)
[2023-03-31] MEDS ORDERED: TRAZ150T57 PO (23:28)
[2023-03-31 23:35] LABS: Albumin, Blood 3.3 g/dL (3.4-5.0); Albumin/Globulin Ratio 0.9 (0.8-1.8); Bilirubin, Total 0.2 mg/dL (0.1-1.0); Bun/Creatinine Ratio 18.8 (12.0-20.0); Calcium, Blood 8.9 mg/dL (8.5-10.1); Creatinine, Blood 1.01 mg/dL (0.40-1.00); Globulin, Blood 3.8 g/dL (2.2-4.0); Potassium, Blood 3.8 mmol/L (3.5-5.5); Total Protein, Blood 7.1 g/dL (6.4-8.2)
[2023-04-01 00:04] LABS: Source, Urine Clean Catch
[2023-04-01 00:06] LABS: Bilirubin, Urine Neg (Neg); Blood, Urine Neg (Neg); Glucose Qualitative, Urine Neg (Neg); Ketones, Urine Neg (Neg); Leukocyte Esterase, Urine Neg (Neg); Nitrite, Urine Neg (Neg); Protein, Urine Neg (Neg); Urobilinogen, Urine NORM (Normal)
[2023-04-01 00:09] LABS: Appearance, Urine Clear (Clear); Color, Urine Yellow (P-Yellow)
[2023-04-01 01:30] VITALS: BP 145/101
[2023-04-01] MEDS ORDERED: Robaxin750 MG PO (02:21)
== END 2023-04-01 02:31 | disposition home or self-care (01) ==
LOC: ER 22:35
PROVIDERS: Emergency Medicine
DX: R10.32 Left lower quadrant pain (principal); J45.909 Unspecified asthma, uncomplicated; M06.9 Rheumatoid arthritis, unspecified; E05.00 Thyrotoxicosis with diffuse goiter without thyrotoxic crisis or storm; F31.9 Bipolar disorder, unspecified; Z87.891 Personal history of nicotine dependence; Z79.51 Long term (current) use of inhaled steroids; Z79.899 Other long term (current) drug therapy; Z88.1 Allergy status to other antibiotic agents; Z88.5 Allergy status to narcotic agent; Z88.8 Allergy status to other drugs, medicaments and biological substances; Z91.018 Allergy to other foods; Z91.040 Latex allergy status
CPT/HCPCS: 74176; 80053; 81003; 83690; 84484; 85025; 96361; 96374; 96375; 99284-25; A9270; J0780; J1885; J7030; Q9967

== ENCOUNTER → 2023-12-30 | Outpatient (CLI) | payer OTHER ==
[~2023-12-30] MED LIST changes: +ALPRAZOLAM0.5 M1 PO; +CATAPRES-TTS 11 EAC1; +DECARA1250 MC1 PO; +ESTRADIOL1 M1; +EUTHYROX125 MC1; +LEVSOD100 PO; +LURASIDONE HCL120 MG PO; +Robaxin750 MG PO; +TRAZ150T57 PO
== END ==
LOC: LAB SHORT 14:25 → LAB 14:25
DX: J02.9 Acute pharyngitis, unspecified (principal)
CPT/HCPCS: 87081

== ENCOUNTER 2024-03-09 13:08 | Emergency (ER) | payer OTHER ==
[~2024-03-09] VITALS: Ht 167.6 cm; Wt 127.0 kg
[~2024-03-09 13:08] MED LIST changes: +ALMACONE SUSPE355 ML PO; +Bentyl20 MG PO; -CATAPRES-TTS 11 EAC1; +CATAPRES0.1 MG PO; -ESTRADIOL1 M1; -EUTHYROX125 MC1; +HYDCHL12.5 PO; +IMODIUM A-D2 M3 PO; +LATUDA120 MG PO; +LEVOTHYROXINE175 MC9 PO; +LIDO700A20 TOP; +LIOT5 PO; +LISI5 PO; -LURASIDONE HCL120 MG PO; +MULVITA PO; +ONDA4 PO; +PROP10 PO
[2024-03-09 13:34] VITALS: BP 155/111
[2024-03-09] MEDS ORDERED: Ketorolac Tromethamine 15mg Vial IM ONE (16:25)
== END 2024-03-09 16:42 | disposition home or self-care (01) ==
LOC: ER 13:08
DX: M25.561 Pain in right knee (principal); J45.909 Unspecified asthma, uncomplicated; F17.200 Nicotine dependence, unspecified, uncomplicated; F31.9 Bipolar disorder, unspecified; Z88.1 Allergy status to other antibiotic agents; Z88.8 Allergy status to other drugs, medicaments and biological substances; Z88.5 Allergy status to narcotic agent; Z91.040 Latex allergy status; Z91.018 Allergy to other foods; Z79.899 Other long term (current) drug therapy; Z79.890 Hormone replacement therapy
CPT/HCPCS: 73562-RT; 99283-25; J1885

== ENCOUNTER 2024-05-20 10:01 | Day surgery (SDC) | payer OTHER ==
[~2024-05-20] VITALS: Ht 167.6 cm; Wt 129.2 kg
[2024-05-20] VITALS (15 sets, daily range): BP systolic 95–147; BP diastolic 67–114
[~2024-05-20 10:01] MED LIST changes: +CeFAZolin Sodium 2,000 MG in NS 100 ML IV SCH; +ESCI20 PO; +LATUDA120 M1 PO; -LATUDA120 MG PO; -LEVOTHYROXINE175 MC9 PO; +LEVSOD137 PO; +Lactated Ringer's 1,000 ML IV SCH; +TOPIRAMATE ER100 M1 PO; +Tranexamic Acid 100 ML IV SCH
[2024-05-20] MEDS ORDERED: CeFAZolin Sodium 2,000 MG VIAL ONE (10:02)
[2024-05-20] MEDS ORDERED: CeFAZolin Sodium 3,000 MG in NS 100 ML IV SCH (10:20)
[2024-05-20] MEDS ORDERED: FentaNYL Citrate 50 MCG/ML 2 ML Injection ONE ×2 (11:05→16:06)
[2024-05-20] MEDS ORDERED: propofoL 20 ML IV ONE (11:05)
[2024-05-20] MEDS ORDERED: Dexamethasone Sod Phos 10 MG/ML 1ML VIAL ONE (11:15)
[2024-05-20] MEDS ORDERED: Ketorolac Tromethamine 30mg Vial ONE (11:15)
[2024-05-20] MEDS ORDERED: Ondansetron HCl 2 MG / ML 2ML Vial ONE ×2 (11:15→13:20)
[2024-05-20] MEDS ORDERED: Midazolam HCl 1MG / ML 2ML Vial IV SCH (12:20)
[2024-05-20] MEDS ORDERED: EpiNEPhrine 1 MG/1 ML 1ML Vial ONE (12:34)
[2024-05-20] MEDS ORDERED: Lidocaine 1%-Epineph 1:200000 30 ML SDV ONE (12:34)
[2024-05-20] MEDS ORDERED: Ondansetron HCl 2 MG / ML 2ML Vial IV ONE (13:20)
[2024-05-20] MEDS ORDERED: Ketamine HCl 100 MG / ML 5ML Vial ONE (13:41)
[2024-05-20] MEDS ORDERED: HYDROmorphone HCl/Pf 1MG SYR ONE ×2 (13:41→15:37)
--- NOTE | 2024-05-20 15:19 | NUR ---
05/20/24 1519 Tasha Carrasquillo 1MG EPI INSTILLED INTO EACH 3L BAG OF NS. 1 3L BAG OF NS USED THROUGHOUT ARTHROSCOPIC PORTION OF SURGERY.
[2024-05-20] MEDS ORDERED: OxyCODONE HCL 5 MG TAB PO PRN (16:20)
--- NOTE | 2024-05-20 17:29 | NUR ---
DISCHARGE NOTE PT A&OX4, BREATHING RA, VSS, TOLERATING PO INTAKE. PO PAIN MEDICATIONS GIVEN PER MD ORDERS. PT VERY VOCAL ABOUT PAIN BUT RATES 4/10 AT DISCHARGE, PAIN TOLERABLE, AND VERY EAGER TO GO HOME. KNEE BRACE AND POLAR PACK IN PLACE. Discharge instructions reviewed with patient. Patient verbalizes understanding. Copy given to patient to take home. Dressing to procedure site clean, dry, intact with no visible drainage, swelling, erythema or bruising noted. Discharged via wheelchair to private car for ride home.
== END 2024-05-20 17:25 | disposition home or self-care (01) ==
LOC: ORSCMMR 10:01 → ORD 10:01 → ORSCMMR 10:02 → ORD 11:45
PROVIDERS: Orthopaedic Surgery Sports Medicine
PROC: 0QSD04Z Reposition Right Patella with Internal Fixation Device, Open Approach (ICD-10-PCS; principal; 2024-05-20 13:30)
PROC: 0SJC4ZZ Inspection of Right Knee Joint, Percutaneous Endoscopic Approach (ICD-10-PCS; principal; 2024-05-20 13:30)
DX: M23.51 Chronic instability of knee, right knee (principal); M67.51 Plica syndrome, right knee; I10 Essential (primary) hypertension; J45.909 Unspecified asthma, uncomplicated; K21.9 Gastro-esophageal reflux disease without esophagitis; F41.9 Anxiety disorder, unspecified; F32.A Depression, unspecified; F43.10 Post-traumatic stress disorder, unspecified; E66.01 Morbid (severe) obesity due to excess calories; Z68.42 Body mass index [BMI] 45.0-49.9, adult; M79.7 Fibromyalgia; F17.210 Nicotine dependence, cigarettes, uncomplicated; Z79.899 Other long term (current) drug therapy
CPT/HCPCS: A9270; C1713; C1889; J0171; J0690; J1100; J1171; J1885; J2250; J2405; J2704; J3010; J7120

== ENCOUNTER 2025-01-04 01:44 | Emergency (ER) | payer OTHER ==
[~2025-01-04] VITALS: Ht 162.6 cm; Wt 122.5 kg
[~2025-01-04 01:44] MED LIST changes: -CeFAZolin Sodium 2,000 MG in NS 100 ML IV SCH; +EUTHYROX175 MCG PO; -LATUDA120 M1 PO; +LATUDA80 M2 PO; -LEVSOD137 PO; -Lactated Ringer's 1,000 ML IV SCH; -TRAZ150T57 PO; -Tranexamic Acid 100 ML IV SCH
[2025-01-04] MEDS ORDERED: Ondansetron HCl 2 MG / ML 2ML Vial IV ONE (02:05)
[2025-01-04] MEDS ORDERED: NS 1,000 ML IV SCH (02:05)
[2025-01-04] MEDS ORDERED: HYDROmorphone HCl/Pf 1MG SYR IV ONE (02:05)
[2025-01-04 02:58] LABS: Alanine Aminotransfer (ALT/SGP 27.0 U/L (12-78); Albumin, Blood 3.3 g/dL (3.4-5.0); Albumin/Globulin Ratio 0.9 (0.8-1.8); Anion Gap 10.0 mmol/L (3-11); Aspartate Aminotrans (AST/SGOT 28.0 U/L (12-37); Bilirubin, Total 0.3 mg/dL (0.1-1.0); Blood Urea Nitrogen 10.0 mg/dL (8-24); CO2, Blood 27.0 mmol/L (21-32); Calcium, Blood 8.8 mg/dL (8.5-10.1); Chloride, Blood 105.0 mmol/L (98-108); Creatinine, Blood 1.02 mg/dL (0.40-1.00); Globulin, Blood 3.5 g/dL (2.2-4.0); Glucose, Blood 114.0 mg/dL (70-99); Potassium, Blood 4.2 mmol/L (3.5-5.5); Sodium, Blood 138.0 mmol/L (136-145); Total Protein, Blood 6.8 g/dL (6.4-8.2)
[2025-01-04] MEDS ORDERED: Pantoprazole Sodium 40 MG Injection IV ONE (03:20)
[2025-01-04 03:22] LABS: BASOPHILS ABSOLUTE AUTO 0.04 K/mm3 (0.00-0.23); BASOPHILS PERCENT AUTO 1 % (0-2); EOSINOPHILS ABSOLUTE AUTO 0.17 K/mm3 (0.00-0.68); EOSINOPHILS PERCENT AUTO 3 % (0-6); Hematocrit 29.6 % (33.0-51.0); Hemoglobin 9.2 g/dL (11.5-16.0); IMMATURE GRAN ABSOLUTE AUTO 0.02 K/mm3 (0.00-0.10); IMMATURE GRAN PERCENT AUTO 0 % (0-1); LYMPHOCYTES ABSOLUTE AUTO 2.15 K/mm3 (0.84-5.20); LYMPHOCYTES PERCENT AUTO 33 % (21-46); MONOCYTES ABSOLUTE AUTO 0.43 K/mm3 (0.16-1.47); MONOCYTES PERCENT AUTO 7 % (4-13); Mean Corpuscular HGB Conc 31.1 g/dL (31.5-36.5); Mean Corpuscular Volume 81 fL (80-100); NEUTROPHILS ABSOLUTE AUTO 3.81 K/mm3 (1.96-9.15); NEUTROPHILS PERCENT AUTO 58 % (41-73); NRBC ABSOLUTE 0.00 K/mm3 (0.00-0.02); NRBC Auto 0.0 /100 WBC (0.0-0.2); Platelet Count 226 K/mm3 (150-400); RDW Coefficient Variation 15.1 % (11.7-14.2); RDW Standard Deviation 44.8 fL (35.1-46.3)
[2025-01-04] MEDS ORDERED: Lidocaine 2% Viscous Soln 15 ML UDC PO ONE (03:40)
[2025-01-04 04:15] VITALS: BP 159/105
== END 2025-01-04 04:20 | disposition home or self-care (01) ==
LOC: ER 01:44
PROVIDERS: Emergency Medicine
DX: R10.9 Unspecified abdominal pain (principal)
CPT/HCPCS: 74177; 80053; 83690; 84484; 85025; 93005; 93010; 96361; 96374-59; 96375; 99284-25; A9270; J1171; J2405; J2470; J7030; Q9967

== ENCOUNTER 2025-02-11 10:08 | Day surgery (SDC) | payer OTHER ==
[2025-02-11] VITALS (13 sets, daily range): BP systolic 108–136; BP diastolic 69–94
[~2025-02-11] VITALS: Ht 167.6 cm; Wt 126.2 kg
[~2025-02-11 10:08] MED LIST changes: +Desyrel150 MG PO; +KETOROLAC30 MG/1 ML IV; +LATUDA PO; +LATUDA120 M1 PO; -LATUDA80 M2 PO; +LEVSOD137 PO; +Zofran4 MG PO
[2025-02-11] MEDS ORDERED: CeFAZolin Sodium 3,000 MG in NS 100 ML IV SCH (11:35)
[2025-02-11] MEDS ORDERED: CeFAZolin Sodium 3,000 MG VIAL ONE (11:39)
--- NOTE | 2025-02-11 11:42 | NUR ---
Report given to Ramnoita JACOB to assume care at this time.
[2025-02-11] MEDS ORDERED: Ondansetron HCl 2 MG / ML 2ML Vial ONE ×2 (12:07→16:26)
[2025-02-11] MEDS ORDERED: Ondansetron HCl 2 MG / ML 2ML Vial IV ONE (12:10)
--- NOTE | 2025-02-11 12:10 | NUR ---
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 ORDER FROM ANESTHESIA FOR ZOFRAN 4M GIVEN IV. GIVEN TO PATIENT - WHICH PATIENT STATES SEEMS TO HELP SHORTLY AFTER ADMINISTRATION.
--- NOTE | 2025-02-11 12:11 | NUR ---
History, Chart, Medications and Allergies reviewed before start of procedure. Patient confirms NPO status and agrees with scheduled surgery. Pre-Op teaching done. Pt verbalizes understanding. Lungs clear T/O to Auscultation. Patient reports completing Chlorhexadine shower X2 prior to admission to hospital.
[2025-02-11] MEDS ORDERED: FentaNYL Citrate 50 MCG/ML 2 ML Injection ONE ×4 (13:00→16:48)
[2025-02-11] MEDS ORDERED: EpiNEPhrine 1 MG/1 ML 1ML Vial ONE (13:50)
[2025-02-11] MEDS ORDERED: Bupivacaine 0.5% W/EPI 1:200000 SDV 30 ML Vial ONE (13:50)
[2025-02-11] MEDS ORDERED: Midazolam HCl 1MG / ML 2ML Vial ONE (13:53)
--- NOTE | 2025-02-11 14:02 | NUR ---
Pt dentures taken to PACU for safekeeping. Pt request to leave glasses on during rollback to OR, industrial engineering director to bring to PACU for safekeeping. Pt jewelry taped and jewelry consent signed, OR team notified.
[2025-02-11] MEDS ORDERED: Ketamine HCl 100 MG / ML 5ML Vial ONE (14:16)
[2025-02-11] MEDS ORDERED: Dexamethasone Sod Phos 10 MG/ML 1ML VIAL ONE (14:33)
[2025-02-11] MEDS ORDERED: HYDROmorphone HCl/Pf 1MG SYR ONE ×3 (14:36→16:54)
[2025-02-11] MEDS ORDERED: HydrALAZINE HCl 20 MG / ML 1ML Vial IV PRN (14:50)
[2025-02-11] MEDS ORDERED: HYDROmorphone HCl/Pf 1MG SYR IV PRN ×2 (14:50)
[2025-02-11] MEDS ORDERED: FentaNYL Citrate 50 MCG/ML 2 ML Injection IV PRN ×2 (14:50)
[2025-02-11] MEDS ORDERED: Albuterol 2.5 MG/3 ML VIAL INH PRN (14:50)
[2025-02-11] MEDS ORDERED: LORazepam 2 MG/ML 1ML Injection IV PRN (14:55)
[2025-02-11] MEDS ORDERED: Ondansetron HCl 2 MG / ML 2ML Vial IV PRN (14:55)
[2025-02-11] MEDS ORDERED: OxyCODONE 5 mg/Acetamin 325 mg TABLET PO PRN (17:00)
== END 2025-02-11 18:15 | disposition home or self-care (01) ==
LOC: ORSCMMR 10:08 → ORD 11:45 → ORSCMMR 12:00 → ORD 12:15 → ORSCMMR 18:15
PROVIDERS: Orthopaedic Surgery
PROC: 0MQP4ZZ Repair Left Knee Bursa and Ligament, Percutaneous Endoscopic Approach (ICD-10-PCS; principal; 2025-02-11 14:00)
PROC: 0SQD0ZZ Repair Left Knee Joint, Open Approach (ICD-10-PCS; principal; 2025-02-11 14:00)
DX: M24.462 Recurrent dislocation, left knee (principal); J45.909 Unspecified asthma, uncomplicated; E03.9 Hypothyroidism, unspecified; F31.9 Bipolar disorder, unspecified; E66.01 Morbid (severe) obesity due to excess calories; Z68.41 Body mass index [BMI] 40.0-44.9, adult; K31.84 Gastroparesis; Z79.899 Other long term (current) drug therapy
CPT/HCPCS: A9270; C1713; C1889; J0169; J0690; J1100; J1171; J2250; J2405; J2704; J3010; J7120